=== PATIENT | male | born 1950 | race Caucasian/White ===

== ENCOUNTER 2018-06-11 15:19 | Emergency (ER) | payer MEDICARE ==
[~2018-06-11] VITALS: Ht 185.4 cm; Wt 143.6 kg
[~2018-06-11 15:19] MED LIST: ACYC400T PO; AMLO5TAB PO; ASPI81TA52 PO; ATEN25TA PO; ATOR40TA PO; DAPA10TA PO; FLO0.4C PO; FURO-150 PO; MECL-111 PO; METF10004 PO; MULT-1085 PO; NOVRI SQ; VALS320T17 PO
[2018-06-11 16:15] LABS: BASOPHILS % (AUTO) 0.4 % (0-1); EOSINOPHILS # (AUTO) 0.2 X10'3 (0-0.9); EOSINOPHILS % (AUTO) 1.6 % (0-6); HEMATOCRIT 40.2 % (42.0-52.0); HEMOGLOBIN 13.4 g/dl (14.0-17.9); LYMPHOCYTES # (AUTO) 1.2 X10'3 (1.1-4.8); LYMPHOCYTES % (AUTO) 10.5 % (21-51); MEAN CORPUSCULAR HEMOGLOBIN 28.2 PG (27.0-31.0); MEAN CORPUSCULAR HGB CONC 33.3 % (33.0-36.5); MEAN CORPUSCULAR VOLUME 84.8 FL (78-98); MEAN PLATELET VOLUME 8.9 FL (7.4-10.4); MONOCYTES # (AUTO) 0.8 X10'3 (0-0.9); MONOCYTES % (AUTO) 7.4 % (2-12); NEUTROPHILS # (AUTO) 8.9 X10'3 (1.8-7.7); NEUTROPHILS % (AUTO) 80.1 % (42-75); PLATELET COUNT 180 X10'3 (140-440); RED BLOOD COUNT 4.74 X10'6 (4.70-6.10); RED CELL DISTRIBUTION WIDTH 16.1 % (11.5-14.5); WHITE BLOOD COUNT 11.1 X10'3 (4.5-11.0)
[2018-06-11 16:30] LABS: ALANINE AMINOTRANSFERASE 22 U/L (12-78); ALBUMIN 3.4 G/DL (3.4-5.0); ALKALINE PHOSPHATASE 98 IU/L (46-116); ANION GAP 9 (8-16); ASPARTATE AMINO TRANSFERASE 9 U/L (10-37); BILIRUBIN,TOTAL 0.6 MG/DL (0.1-1.0); BLOOD UREA NITROGEN 21 MG/DL (7-18); BUN/CREATININE RATIO 17.9 (5.4-32.0); CALCIUM 9.1 MG/DL (8.5-10.1); CHLORIDE 99 MMOL/L (99-107); CREATININE 1.17 MG/DL (0.60-1.10); GLUCOSE 293 MG/DL (70-104); POTASSIUM 4.2 MMOL/L (3.5-5.1); SODIUM 135 MMOL/L (135-145); TOTAL CARBON DIOXIDE 27.3 MMOL/L (24-32); TOTAL PROTEIN 6.9 G/DL (6.4-8.2); eGFR 62 ML/MIN
[2018-06-11] MEDS ORDERED: SULF1TAB49 PO (16:45)
[2018-06-11] MEDS ORDERED: CEPH-572 PO (16:45)
[2018-06-11] MEDS ORDERED: CefTRIAXone 1000mg IM Kit (w/lidocaine diluent) IM ONE (16:50)
[2018-06-11] MEDS ORDERED: MUPI22OI30 TOP (16:55)
[2018-06-11 17:15] VITALS: BP 132/75
== END 2018-06-11 17:17 | disposition home or self-care (01) ==
LOC: ER 15:20
DX: S81.802A Unspecified open wound, left lower leg, initial encounter (principal); L03.116 Cellulitis of left lower limb; E11.65 Type 2 diabetes mellitus with hyperglycemia; I25.10 Atherosclerotic heart disease of native coronary artery without angina pectoris; I10 Essential (primary) hypertension; I25.2 Old myocardial infarction; G89.29 Other chronic pain; Z95.1 Presence of aortocoronary bypass graft; Z98.890 Other specified postprocedural states; Z88.5 Allergy status to narcotic agent; Z79.82 Long term (current) use of aspirin; Z79.2 Long term (current) use of antibiotics; Z79.84 Long term (current) use of oral hypoglycemic drugs; Z79.899 Other long term (current) drug therapy; X58.XXXA Exposure to other specified factors, initial encounter; Y93.89 Activity, other specified; Y92.89 Other specified places as the place of occurrence of the external cause; Y99.8 Other external cause status
CPT/HCPCS: 36415; 80053; 84145; 85025; 93971; 96372; 99285; J0696

== ENCOUNTER 2018-11-22 09:38 | Inpatient (IN) | payer MEDICARE | END 2018-11-25 14:00 | LOC: PAS 09:38 → ORTHO 4S 14:10 | PROC: 0SRC0J9 Replacement of Right Knee Joint with Synthetic Substitute, Cemented, Open Approach (ICD-10-PCS; principal; 2018-11-22 11:21) | DX: M17.11 Unilateral primary osteoarthritis, right knee (principal); D62 Acute posthemorrhagic anemia ==

== ENCOUNTER 2023-05-20 10:30 | Emergency (ER) | payer MEDICARE ==
[~2023-05-20] VITALS: Ht 182.9 cm; Wt 124.8 kg
[~2023-05-20 10:30] MED LIST changes: -ATOR40TA PO; -DAPA10TA PO; +DICL100T85 PO; +GLUC-221 PEG; +INSU100I31; -MECL-111 PO; +MECL-159 PO; +METF-438 PO; -METF10004 PO; +NOVLG SQ; -NOVRI SQ; +OLME40TA18 PO; -VALS320T17 PO
[2023-05-20 10:36] VITALS: BP 134/72; PULSE 80; TEMP 98.3; O2SAT 94
[2023-05-20] MEDS ORDERED: HYDROcodone/acetaminophen 10/325mg tab PO ONE (11:00)
[2023-05-20] MEDS ORDERED: HYDR-3972 PO (12:12)
[2023-05-20 12:36] VITALS: RESP 18
== END 2023-05-20 12:42 | disposition home or self-care (01) ==
LOC: ER 10:31
DX: S52.502A Unspecified fracture of the lower end of left radius, initial encounter for closed fracture (principal); S00.81XA Abrasion of other part of head, initial encounter; I10 Essential (primary) hypertension; E11.9 Type 2 diabetes mellitus without complications; Z88.8 Allergy status to other drugs, medicaments and biological substances; Z79.82 Long term (current) use of aspirin; Z79.84 Long term (current) use of oral hypoglycemic drugs; Z79.1 Long term (current) use of non-steroidal anti-inflammatories (NSAID); Z79.899 Other long term (current) drug therapy; W19.XXXA Unspecified fall, initial encounter; Y93.89 Activity, other specified; Y92.89 Other specified places as the place of occurrence of the external cause; Y99.8 Other external cause status
CPT/HCPCS: 29125; 73110; 99284; A4565; A6449

== ENCOUNTER 2024-12-27 16:04 | Emergency (ER) | payer MEDICARE ==
[~2024-12-27] VITALS: Ht 182.9 cm; Wt 134.5 kg
[~2024-12-27 16:04] MED LIST changes: -MECL-159 PO; +MECL-302 PO
[2024-12-27 16:06] VITALS: BP 185/64; PULSE 65; RESP 16; O2SAT 96
[2024-12-27] MEDS ORDERED: METH-798 PO (19:14)
[2024-12-27 19:42] VITALS: TEMP 98
== END 2024-12-27 19:43 | disposition home or self-care (01) ==
LOC: ER 16:04
DX: S00.83XA Contusion of other part of head, initial encounter (principal); E11.9 Type 2 diabetes mellitus without complications; I10 Essential (primary) hypertension; I25.10 Atherosclerotic heart disease of native coronary artery without angina pectoris; Z88.5 Allergy status to narcotic agent; Z95.1 Presence of aortocoronary bypass graft; W01.0XXA Fall on same level from slipping, tripping and stumbling without subsequent striking against object, initial encounter; Y93.89 Activity, other specified; Y92.89 Other specified places as the place of occurrence of the external cause; Y99.8 Other external cause status
CPT/HCPCS: 70450; 70486; 72125; 99284; A6402; A6449